=== PATIENT | female | born 1980 | race Caucasian/White ===

== ENCOUNTER 2018-01-06 10:30 | Outpatient (CLI) | payer MEDICAID ==
[2018-01-06 11:22] LABS: ADD UMIC YES; UR ASCORBIC ACID NEGATIVE (NEGATIVE); UR BILIRUBIN (Dip) NEGATIVE (NEGATIVE); UR BLOOD (Dip) 1+ mg/dL (NEGATIVE); UR CLARITY SLIGHTLY CLOUDY (CLEAR); UR COLOR YELLOW (YELLOW); UR GLUCOSE (Dip) NEGATIVE (NEGATIVE); UR KETONES (Dip) NEGATIVE (NEGATIVE); UR LEUKOCYTE ESTERASE (Dip) 3+ Leu/ul (NEGATIVE); UR NITRITE (Dip) NEGATIVE (NEGATIVE); UR RBC 0 /HPF (0-5); UR SPECIFIC GRAVITY (Dip) 1.016 (1.003-1.030); UR SQUAMOUS EPITHELIAL CELL FEW /HPF (FEW); UR TOTAL PROTEIN (Dip) NEGATIVE (NEGATIVE); UR UROBILINOGEN (Dip) NEGATIVE (NEGATIVE); UR WBC 2 /HPF (0-5)
[2018-01-06 12:19] LABS: ADD MAN DIFF? NO
[2018-01-06 12:21] LABS: WHITE BLOOD COUNT 12.6 10^3/ul (4.8-10.8)
[2018-01-06 12:21] LABS: BASOPHIL # 0.1 10^3/ul (0.0-0.1); BASOPHILS % 0.5 % (0.0-2.0); EOSINOPHILS # 0.1 10^3/ul (0.0-0.5); HEMATOCRIT 36.5 % (37.0-47.0); HEMOGLOBIN 11.9 g/dl (12.0-16.0); LYMPHOCYTES # 2.6 10^3/ul (0.8-2.9); LYMPHOCYTES % 20.3 % (15.0-51.0); MEAN CORPUSCULAR HEMOGLOBIN 31.2 pg (29.0-33.0); MEAN CORPUSCULAR HGB CONC 32.6 g/dl (32.0-37.0); MEAN CORPUSCULAR VOLUME 95.8 fl (82.0-101.0); MEAN PLATELET VOLUME 10.1 fl (7.4-10.4); MONOCYTE # 0.7 10^3/ul (0.3-0.9); MONOCYTES % 5.1 % (0.0-11.0); NEUTROPHIL # 8.8 10^3/ul (1.6-7.5); NEUTROPHILS % 69.2 % (39.0-77.0); PLATELET COUNT 201 10^3/UL (140-415); RED BLOOD COUNT 3.81 10^6/ul (4.20-5.40); RED CELL DISTRIBUTION WIDTH 13.2 % (11.5-14.5)
== END 2018-01-06 13:50 | disposition home or self-care (01) ==
LOC: OBT 10:30 → L-D 10:30 → OBT 13:50
DX: O26.893 Other specified pregnancy related conditions, third trimester (principal); R31.9 Hematuria, unspecified; O09.513 Supervision of elderly primigravida, third trimester; Z3A.28 28 weeks gestation of pregnancy
CPT/HCPCS: 76775; 76817; 76818; 81001; 85025; 87086

== ENCOUNTER 2018-03-17 01:18 | Inpatient (IN) | payer MEDICAID ==
[2018-03-17 02:13] LABS: RUPTURE FETAL MEMBRANES POSITIVE (NEGATIVE)
[2018-03-17 03:28] LABS: ADD MAN DIFF? NO
[2018-03-17] MEDS ORDERED: CARBOPROST 250 MCG INJ IM (03:30)
[2018-03-17] MEDS ORDERED: LIDOCAINE 1% (MPF) 30 ML INJ INJ (03:30)
[2018-03-17] MEDS ORDERED: IBUPROFEN 600 MG TAB PO (03:30)
[2018-03-17] MEDS ORDERED: METHYLERGONOVINE 0.2 MG INJ IM (03:30)
[2018-03-17] MEDS ORDERED: OXYTOCIN 30 UNITS/LR 500 ML IV ×3 (03:30)
[2018-03-17] MEDS ORDERED: MISOPROSTOL 200 MCG TAB PR (03:30)
[2018-03-17 03:51] LABS: INR 0.91; PARTIAL THROMBOPLASTIN TIME 29.3 Sec (23.0-35.0); PROTIME 12.3 Sec (11.9-14.9)
[2018-03-17 04:05] LABS: WHITE BLOOD COUNT 12.6 10^3/ul (4.8-10.8)
[2018-03-17 04:05] LABS: BASOPHIL # 0.1 10^3/ul (0.0-0.1); BASOPHILS % 0.5 % (0.0-2.0); EOSINOPHILS # 0.1 10^3/ul (0.0-0.5); EOSINOPHILS % 0.9 % (0.0-7.0); HEMATOCRIT 38.2 % (37.0-47.0); HEMOGLOBIN 12.5 g/dl (12.0-16.0); LYMPHOCYTES # 2.4 10^3/ul (0.8-2.9); LYMPHOCYTES % 19.2 % (15.0-51.0); MEAN CORPUSCULAR HEMOGLOBIN 30.7 pg (29.0-33.0); MEAN CORPUSCULAR HGB CONC 32.7 g/dl (32.0-37.0); MEAN CORPUSCULAR VOLUME 93.9 fl (82.0-101.0); NEUTROPHIL # 8.8 10^3/ul (1.6-7.5); NEUTROPHILS % 69.9 % (39.0-77.0); PLATELET COUNT 192 10^3/UL (140-415); RED BLOOD COUNT 4.07 10^6/ul (4.20-5.40); RED CELL DISTRIBUTION WIDTH 13.7 % (11.5-14.5)
[2018-03-17] MEDS: LACTATED RINGER'S 1,000 ML IV ×4 (04:06→22:12)
[2018-03-17] MEDS: MISOPROSTOL 50 MCG CAPSULE PO ×3 (05:14→14:31)
[2018-03-17 05:57] LABS: HEPATITIS B SURFACE ANTIGEN NEGATIVE (NEGATIVE)
[2018-03-17 15:22] LABS: RAPID PLASMA REAGIN NONREACTIVE (NR)
[2018-03-17] MEDS ORDERED: MINERAL OIL LIGHT 10 ML VIAL TOP (16:00)
[2018-03-17] MEDS ORDERED: AMPICILLIN 2 GM/NS (PMX) 100 ML (17:35)
[2018-03-17] MEDS: AMPICILLIN 2 GM/NS (PMX) 100 ML IVPB (17:40)
[2018-03-17] MEDS ORDERED: NALOXONE (0.4 MG/ML) INJ IV (19:30)
[2018-03-17] MEDS ORDERED: DIPHENHYDRAMINE 50 MG INJ IV (19:30)
[2018-03-17] MEDS ORDERED: HYDROmorphONE 0.5 MG/0.5 ML SYG IV ×2 (19:30)
[2018-03-17] MEDS ORDERED: ONDANSETRON 4 MG INJ IV (19:30)
[2018-03-17] MEDS ORDERED: KETOROLAC 30 MG INJ IV (19:30)
[2018-03-17] MEDS: FENTAnyl 2MCG/ML-ROPIV 0.2% 100 ML BAG EPI (20:33)
[2018-03-17] MEDS: AMPICILLIN 1 GM/NS (PMX) 50 ML IVPB (22:12)
[2018-03-18] MEDS: AMPICILLIN 1 GM/NS (PMX) 50 ML IVPB (01:53)
[2018-03-18] MEDS: OXYTOCIN 30 UNITS/LR 500 ML IV ×2 (01:55→15:43)
[2018-03-18] MEDS: FENTAnyl 2MCG/ML-ROPIV 0.2% 100 ML BAG EPI ×2 (02:40→11:47)
[2018-03-18] MEDS: LACTATED RINGER'S 1,000 ML IV ×4 (05:02→20:56)
[2018-03-18] MEDS ORDERED: AMPICILLIN 2 GM/NS (PMX) 100 ML (05:28)
[2018-03-18] MEDS: ACETAMINOPHEN 325 MG TAB PO (05:31)
[2018-03-18] MEDS: GENTAMICIN 120 MG/NS (PMX) 100 ML IVPB (05:32)
[2018-03-18] MEDS: AMPICILLIN 2 GM/NS (PMX) 100 ML IVPB ×3 (06:13→23:56)
[2018-03-18] MEDS: GENTAMICIN 80 MG/NS (PMX) 50 ML IVPB ×2 (13:49→21:53)
[2018-03-18] MEDS ORDERED: ONDANSETRON 4 MG INJ (14:18)
[2018-03-18] MEDS ORDERED: OXYTOCIN 30 UNITS/LR 500 ML IV ×2 (14:18→21:00)
[2018-03-18] MEDS ORDERED: METOCLOPRAMIDE 10 MG INJ (14:18)
[2018-03-18] MEDS ORDERED: KETOROLAC 30 MG INJ (14:19)
[2018-03-18] MEDS ORDERED: LIDOCAINE 1.5%/EPI MPF (SDV) 30 ML VIAL (14:29)
[2018-03-18] MEDS ORDERED: morphine SULFATE/PF (10 MG/10 ML) INJ (14:36)
[2018-03-18] MEDS ORDERED: DIPHENHYDRAMINE 50 MG INJ IV (16:00)
[2018-03-18] MEDS ORDERED: morphine (1 MG/ML) 10ML SYRINGE IV ×3 (16:00)
[2018-03-18] MEDS ORDERED: LORAZEPAM 2 MG INJ IV (16:00)
[2018-03-18] MEDS ORDERED: morphine 2 MG INJ IV ×4 (16:00)
[2018-03-18] MEDS ORDERED: NALOXONE (0.4 MG/ML) INJ IV (16:00)
[2018-03-18] MEDS ORDERED: ONDANSETRON 4 MG INJ IV ×2 (16:00)
[2018-03-18] MEDS: KETOROLAC 30 MG INJ IV (16:05)
[2018-03-18] MEDS: AZITHROMYCIN 500MG/NS (PMX) 250 ML IVPB (16:05)
[2018-03-18] MEDS: SENNA/DOCUSATE NA (8.6MG/50MG) TAB PO (21:00)
[2018-03-18] MEDS ORDERED: METHYLERGONOVINE 0.2 MG INJ IM (21:00)
[2018-03-18] MEDS ORDERED: NA PHOSPHATE/BIPHOS 133 ML ENEMA PR (21:00)
[2018-03-18] MEDS ORDERED: MISOPROSTOL 200 MCG TAB PR (21:00)
[2018-03-18] MEDS ORDERED: HYDROCODONE/APAP (5/325) TAB PO (21:00)
[2018-03-18] MEDS ORDERED: CARBOPROST 250 MCG INJ IM (21:00)
[2018-03-18] MEDS: CLINDAMYCIN 900 MG/D5W (PMX) 50 ML IVPB (23:56)
[2018-03-19] MEDS: GENTAMICIN 80 MG/NS (PMX) 50 ML IVPB ×3 (04:14→20:35)
[2018-03-19] MEDS: LACTATED RINGER'S 1,000 ML IV ×3 (05:16→21:00)
[2018-03-19] MEDS: CLINDAMYCIN 900 MG/D5W (PMX) 50 ML IVPB ×3 (05:32→18:26)
[2018-03-19] MEDS: AMPICILLIN 2 GM/NS (PMX) 100 ML IVPB ×4 (05:53→23:39)
[2018-03-19] MEDS ORDERED: morphine 4 MG/ML VIAL IV ×2 (06:06→06:07)
[2018-03-19] MEDS: KETOROLAC 30 MG INJ IV ×2 (06:40→14:33)
[2018-03-19 07:52] LABS: ADD MAN DIFF? NO
[2018-03-19 07:57] LABS: BASOPHILS % 0.2 % (0.0-2.0); EOSINOPHILS % 0.1 % (0.0-7.0); HEMATOCRIT 30.4 % (37.0-47.0); HEMOGLOBIN 10.1 g/dl (12.0-16.0); LYMPHOCYTES # 1.8 10^3/ul (0.8-2.9); LYMPHOCYTES % 10.5 % (15.0-51.0); MEAN CORPUSCULAR HEMOGLOBIN 30.8 pg (29.0-33.0); MEAN CORPUSCULAR HGB CONC 33.2 g/dl (32.0-37.0); MEAN CORPUSCULAR VOLUME 92.7 fl (82.0-101.0); MONOCYTE # 1.1 10^3/ul (0.3-0.9); MONOCYTES % 6.4 % (0.0-11.0); NEUTROPHIL # 14.3 10^3/ul (1.6-7.5); NEUTROPHILS % 81.9 % (39.0-77.0); PLATELET COUNT 155 10^3/UL (140-415); RED BLOOD COUNT 3.28 10^6/ul (4.20-5.40); RED CELL DISTRIBUTION WIDTH 14.2 % (11.5-14.5)
[2018-03-19 07:57] LABS: WHITE BLOOD COUNT 17.5 10^3/ul (4.8-10.8)
[2018-03-19] MEDS: LANOLIN HPA 1 PKT TOP (08:55)
[2018-03-19] MEDS: SENNA/DOCUSATE NA (8.6MG/50MG) TAB PO ×2 (09:00→20:35)
[2018-03-19] MEDS: BISACODYL 10 MG SUPP PR (09:00)
[2018-03-19] MEDS: IBUPROFEN 800 MG TAB PO ×2 (21:37→22:20)
[2018-03-19] MEDS: OXYCODONE/ACETAMINOPHEN (5/325) TAB PO (23:52)
[2018-03-20] MEDS: CLINDAMYCIN 900 MG/D5W (PMX) 50 ML IVPB ×3 (00:39→11:55)
[2018-03-20] MEDS: OXYCODONE/ACETAMINOPHEN (5/325) TAB PO ×4 (04:50→22:12)
[2018-03-20] MEDS: GENTAMICIN 80 MG/NS (PMX) 50 ML IVPB ×2 (04:52→12:35)
[2018-03-20] MEDS: LACTATED RINGER'S 1,000 ML IV ×3 (05:00→21:00)
[2018-03-20] MEDS: AMPICILLIN 2 GM/NS (PMX) 100 ML IVPB (05:30)
[2018-03-20] MEDS: IBUPROFEN 800 MG TAB PO ×3 (05:37→21:29)
[2018-03-20 08:19] LABS: ADD MAN DIFF? NO
[2018-03-20 08:29] LABS: BASOPHILS % 0.2 % (0.0-2.0); EOSINOPHILS # 0.2 10^3/ul (0.0-0.5); HEMOGLOBIN 9.3 g/dl (12.0-16.0); LYMPHOCYTES # 2.6 10^3/ul (0.8-2.9); LYMPHOCYTES % 15.8 % (15.0-51.0); MEAN CORPUSCULAR HEMOGLOBIN 31.1 pg (29.0-33.0); MEAN CORPUSCULAR HGB CONC 33.2 g/dl (32.0-37.0); MEAN CORPUSCULAR VOLUME 93.6 fl (82.0-101.0); MEAN PLATELET VOLUME 10.9 fl (7.4-10.4); MONOCYTE # 1.2 10^3/ul (0.3-0.9); MONOCYTES % 7.2 % (0.0-11.0); NEUTROPHIL # 12.1 10^3/ul (1.6-7.5); NEUTROPHILS % 74.3 % (39.0-77.0); PLATELET COUNT 151 10^3/UL (140-415); RED BLOOD COUNT 2.99 10^6/ul (4.20-5.40); RED CELL DISTRIBUTION WIDTH 14.3 % (11.5-14.5)
[2018-03-20 08:29] LABS: WHITE BLOOD COUNT 16.3 10^3/ul (4.8-10.8)
[2018-03-20] MEDS: SENNA/DOCUSATE NA (8.6MG/50MG) TAB PO ×2 (09:10→21:29)
[2018-03-20] MEDS: CIPROFLOXACIN 400MG/D5W 200 ML IVPB ×2 (13:44→21:00)
[2018-03-20] MEDS: DOXYCYCLINE 100 MG in SOD CHLORIDE 0.9% 250 ML IVPB (16:16)
[2018-03-20] MEDS: BISACODYL 10 MG SUPP PR (17:26)
[2018-03-21] MEDS: CIPROFLOXACIN 400MG/D5W 200 ML IVPB (01:11)
[2018-03-21] MEDS: DOXYCYCLINE 100 MG in SOD CHLORIDE 0.9% 250 ML IVPB (04:27)
[2018-03-21] MEDS: LACTATED RINGER'S 1,000 ML IV ×2 (05:00→13:00)
[2018-03-21] MEDS: IBUPROFEN 800 MG TAB PO (05:37)
[2018-03-21 06:46] LABS: ADD MAN DIFF? NO
[2018-03-21 06:47] LABS: BASOPHILS % 0.4 % (0.0-2.0); EOSINOPHILS # 0.2 10^3/ul (0.0-0.5); EOSINOPHILS % 2.1 % (0.0-7.0); HEMATOCRIT 28.5 % (37.0-47.0); HEMOGLOBIN 9.3 g/dl (12.0-16.0); LYMPHOCYTES # 2.3 10^3/ul (0.8-2.9); MEAN CORPUSCULAR HEMOGLOBIN 30.8 pg (29.0-33.0); MEAN CORPUSCULAR HGB CONC 32.6 g/dl (32.0-37.0); MEAN CORPUSCULAR VOLUME 94.4 fl (82.0-101.0); MEAN PLATELET VOLUME 10.4 fl (7.4-10.4); MONOCYTE # 0.8 10^3/ul (0.3-0.9); MONOCYTES % 6.9 % (0.0-11.0); NEUTROPHIL # 7.8 10^3/ul (1.6-7.5); NEUTROPHILS % 68.2 % (39.0-77.0); PLATELET COUNT 169 10^3/UL (140-415); RED BLOOD COUNT 3.02 10^6/ul (4.20-5.40); RED CELL DISTRIBUTION WIDTH 14.1 % (11.5-14.5)
[2018-03-21 06:47] LABS: WHITE BLOOD COUNT 11.4 10^3/ul (4.8-10.8)
[2018-03-21] MEDS: DIPHTH/TET/ACEL PERTUSS (ADULT) 0.5 ML VIAL IM* (09:00)
[2018-03-21] MEDS: SENNA/DOCUSATE NA (8.6MG/50MG) TAB PO (09:08)
[2018-03-21] MEDS: OXYCODONE/ACETAMINOPHEN (5/325) TAB PO ×2 (09:08→16:35)
[2018-03-21] MEDS: ACETAMINOPHEN 325 MG TAB PO (12:57)
[2018-03-21] MEDS ORDERED: CIPROFLOXACIN 500 MG TAB PO (18:00)
[2018-03-21] MEDS ORDERED: DOXYCYCLINE 100 MG TAB PO (21:00)
== END 2018-03-21 17:45 | disposition home or self-care (01) | DRG 788 ==
LOC: OBT 01:18 → L-D 03-18 14:17 → OBT 03:15 → PP1 03-18 19:30 → L-D 03:15
PROVIDERS: Obstetrics & Gynecology
PROC: 10D00Z1 Extraction of Products of Conception, Low, Open Approach (ICD-10-PCS; principal; 2018-03-17)
DX: O64.0XX0 Obstructed labor due to incomplete rotation of fetal head, not applicable or unspecified (principal); Z3A.38 38 weeks gestation of pregnancy; Z37.0 Single live birth
CPT/HCPCS: 62319; 76815; 84112; 85025; 85610; 85730; 86592; 86850; 86900; 86901; 87340; 99464